=== PATIENT | female | born 1950 | race American Indian/Alaskan Native ===

== ENCOUNTER 2017-11-17 15:23 | Emergency (ER) | payer SELFPAY ==
[2017-11-17] MEDS ORDERED: PROVENTIL IH ONE ×2 (15:32→15:33)
[2017-11-17] MEDS ORDERED: DUONEB *Not for PRN Use IH ONE ×2 (15:32→15:33)
[2017-11-17 15:35] VITALS: BP 129/80
--- NOTE | 2017-11-17 15:41 | Emergency Department Report ---
ED Shortness of Breath HPI - General Chief Complaint: Dyspnea/Respdistress Stated Complaint: ASTHMA Time Seen by Provider: 11/17/17 15:33 Source: patient, EMS Mode of arrival: Stretcher Limitations: No Limitations - History of Present Illness Initial Comments: History of asthma that presents with 24 hours of acute onset shortness of breath. Patient says that it feels like her usual asthma. She is her nebulizer 4 times a day. She says her asthma always flares when the weather change and that's with she thinks caused it this time. - Related Data Previous Rx's Medication Instructions Recorded Last Taken Type predniSONE [Deltasone] 40 mg PO QDAY #8 tablet 11/17/17 Unknown Rx Allergies Allergy/AdvReac Type Severity Reaction Status Date / Time codeine Allergy Itching Verified 11/17/17 15:35 ED Review of Systems ROS: Stated complaint: ASTHMA Other details as noted in HPI Comment: All other systems reviewed and negative Respiratory: cough, SOB with exertion, SOB at rest, wheezing ED Past Medical Hx - Past Medical History Previous Medical History?: Yes Hx Asthma: Yes - Surgical History Past Surgical History?: No - Social History Smoking Status: Never Smoker Substance Use Type: None - Medications Home Medications: Home Medications Medication Instructions Recorded Confirmed Last Taken Type predniSONE [Deltasone] 40 mg PO QDAY #8 tablet 11/17/17 Unknown Rx ED Physical Exam - General Limitations: No Limitations General appearance: alert, in no apparent distress - Head Head exam: Present: atraumatic, normocephalic - Eye Eye exam: Present: normal appearance - ENT ENT exam: Present: mucous membranes moist - Neck Neck exam: Present: normal inspection - Respiratory Respiratory exam: Present: wheezes, accessory muscle use, decreased breath sounds (diminished bilaterally with supraclavicular tugging). Absent: respiratory distress - Cardiovascular Cardiovascular Exam: Present: regular rate, normal rhythm, tachycardia. Absent : systolic murmur, diastolic murmur, rubs, gallop - GI/Abdominal GI/Abdominal exam: Present: soft, normal bowel sounds - Extremities Exam Extremities exam: Present: normal inspection - Back Exam Back exam: Present: normal inspection - Neurological Exam Neurological exam: Present: alert, oriented X3 - Psychiatric Psychiatric exam: Present: normal affect, normal mood - Skin Skin exam: Present: warm, dry, intact, normal color. Absent: rash ED Course Vital Signs 11/17/17 11/17/17 11/17/17 15:32 15:40 16:12 Temperature 98.6 F Pulse Rate 100 H Pulse Rate [ 88 86 Posterior Bilateral Throughout] Respiratory 22 Rate Respiratory 24 20 Rate [Posterior Bilateral Throughout] Blood Pressure 129/80 O2 Sat by Pulse 92 Oximetry - Reevaluation(s) Reevaluation #1: Patient is in no respiratory distress. Her last breathing treatment over 2 hours ago. Patient feels comfortable going home. I'm in agreement with this assessment. She'll be given 4 days of prednisone to complete a prednisone burst to go home with. Return precautions have been discussed. Cleared for discharge. 11/17/17 17:43 ED Medical Decision Making - Lab Data Result diagrams: 11/17/17 17:01 11/17/17 17:01 - EKG Data -: EKG Interpreted by Me EKG shows normal: sinus rhythm, axis, intervals, QRS complexes, ST-T waves Rate: normal - Medical Decision Making 66-year-old female with history of asthma that presents with acute asthma exacerbation. Patient received magnesium + Medrol/albuterol from EMS. Her bleeding had aren't improved by time she arrived at the ER. Patient was given a DuoNeb and albuterol in the ER. She was watched in the ER for over 2 hours and had no need for further breathing treatments. Patient will be started on a prednisone burst. She feels comfortable going home. Clear to discharge. Critical care attestation.: If time is entered above; I have spent that time in minutes in the direct care of this critically ill patient, excluding procedure time. ED Disposition Clinical Impression: Asthma attack Disposition: DC-01 TO HOME OR SELFCARE Is pt being admited?: No Does the pt Need Aspirin: No Condition: Stable Instructions: Asthma (ED) Prescriptions: predniSONE [Deltasone] 40 mg PO QDAY #8 tablet
--- NOTE | 2017-11-17 17:13 | XRay Report ---
FINAL REPORT EXAM: XR CHEST 1V AP HISTORY: chest discomfort TECHNIQUE: upright single view chest PRIORS: None. FINDINGS: Cardiac and mediastinal contours are unremarkable. No focal pulmonary infiltrate is identified. No pleural fluid collection seen. Pulmonary vasculature is unremarkable. IMPRESSION: Negative single-view chest
[2017-11-17 17:18] LABS: Hematocrit 43.4 % (30.3-42.9); Hemoglobin 14.4 gm/dl (10.1-14.3); Mean Corpuscular HGB Conc 33 % (30-34); Mean Corpuscular Hemoglobin 26 pg (28-32); Mean Corpuscular Volume 79 fl (79-97); Platelet Count 206 K/mm3 (140-440); Red Blood Count 5.51 M/mm3 (3.65-5.03); Red Cell Distribution Width 15.3 % (13.2-15.2)
[2017-11-17 17:39] LABS: Alanine Aminotransferase 12 units/L (7-56); Albumin 3.7 g/dL (3.9-5); BUN/Creatinine Ratio 11; Blood Urea Nitrogen 10 mg/dL (7-17); Calcium 8.6 mg/dL (8.4-10.2); Hemolysis Index 18
[2017-11-17 17:49] LABS: INR 0.91 (0.87-1.13)
[2017-11-17 17:50] LABS: Partial Thromboplastin Time 26.9 Sec. (24.2-36.6)
[2017-11-17 20:49] LABS: Band Neutrophils # (Manual) 0.2 K/mm3; Basophils % (Manual) 0 % (0.0-1.8); Myelocytes # (Manual) 0.2 K/mm3; Total Cells Counted 100
[2017-11-17 20:50] LABS: Platelet Estimate Consistent w Auto
== END 2017-11-17 18:15 | disposition home or self-care (01) ==
LOC: ED 15:23
DX: J45.901 Unspecified asthma with (acute) exacerbation (principal); Z88.5 Allergy status to narcotic agent
CPT/HCPCS: 36415; 71045; 80053; 85007; 85025; 85379; 85610; 85730; 93005; 93010; 94640